=== PATIENT | female | born 1950 | race Caucasian/White ===

== ENCOUNTER → 2021-06-17 | Day surgery (SDC) | payer OTHER ==
[~2021-06-17] VITALS: Ht 157.5 cm; Wt 74.4 kg
[~2021-06-17] MED LIST: ALL DAY ALLERGY10 M2 PO; CELECOXIB100 MG PO; COLLAGEN PO; DHEA50 MG PO; DULOXETINE HCL30 MG PO; IMMUNE PLUS PO; LISINOPRIL-HCT1 EAC1 PO; PREMARIN0.9 MG PO; PROGESTERONE100 MG PO; [UNRECOGNIZED DRUG - OTHER] PO
[2021-06-17 09:36] LABS: HCT 39.6 % (37.0-47.0); HGB 12.6 g/dl (12.5-16.0); MCH 27.9 pg (25.0-31.0); MCHC 31.8 g/dL (32.0-36.0); MCV 87.6 fL (78.0-100.0); MPV 11.7 fL (6.0-9.5); RBC 4.52 M/uL (4.20-5.40); RDW 15.1 % (11.5-14.0); WBC 5.5 K/uL (4.0-10.5)
[2021-06-17 09:53] LABS: ALBUMIN 3.6 g/dL (3.4-5.0); BILIRUBIN - TOTAL 0.4 mg/dL (0.2-1.0); BUN/CREAT RATIO (CALC) 18.6 RATIO; CREATININE 0.86 mg/dL (0.51-0.95); GLOBULIN (CALCULATION) 4.3 g/dL; POTASSIUM 4.2 mmol/L (3.5-5.1); TOTAL PROTEIN 7.9 g/dL (6.4-8.2)
== END | disposition home or self-care (01) ==
LOC: FAS 08:24
PROVIDERS: Surgery
DX: Z12.11 Encounter for screening for malignant neoplasm of colon (principal); K57.30 Diverticulosis of large intestine without perforation or abscess without bleeding; I10 Essential (primary) hypertension; F41.9 Anxiety disorder, unspecified; Z80.0 Family history of malignant neoplasm of digestive organs
CPT/HCPCS: 36415; 80053; J2704; J7120